=== PATIENT | female | born 1995 | race Caucasian/White ===

== ENCOUNTER 2023-07-13 11:02 | Outpatient (CLI) | payer BC, SELFPAY ==
--- NOTE | 2023-07-13 11:15 | CRLHL7_ITS ---
For Patients: As a result of the Cures Act, medical imaging exams and procedure reports are released immediately into your electronic medical record. You may view this report before your referring provider. If you have questions, please contact your health care provider. RIGHT BREAST ULTRASOUND 07/13/2023 CLINICAL HISTORY: KNOWN FIBROADENOMA OF RIGHT BREAST- FOLLOW UP COMPARISON: 04/05/2021. TECHNIQUE: Real-time ultrasound imaging of RIGHT breast with imaging documentation. FINDINGS: Targeted ultrasound RIGHT breast 6 o`clock 4 cm from the nipple performed. In this location there is a solid circumscribed hypoechoic nodule without abnormal vascularity measuring 1.2 x 0.5 x 1.2 cm, previously measuring 2.1 x 1.1 x 2.1 cm. IMPRESSION: Decreased size of fibroadenoma within the RIGHT breast. RECOMMENDATIONS: Clinical follow-up. Age-appropriate screening mammography. BI-RADS Category 2: Benign Dictated by Barrington Garcia MD @ 07/13/2023 1:09:55 PM DEVANG/william DW/Dictated by: Barrington Garcia MD @ 07/13/2023 1:09:00 PM (Electronically Signed)
== END 2023-07-13 11:03 | disposition home or self-care (01) ==
LOC: US 11:02
PROVIDERS: Visit Provider Registered Nurse
DX: D24.1 Benign neoplasm of right breast (principal)
CPT/HCPCS: 76642

== ENCOUNTER 2024-06-18 10:57 | Outpatient (CLI) | payer BC, SELFPAY ==
--- OUTSIDE RECORDS SUMMARY | 2024-06-18 10:59 | XMS_ITS | Clinical Summary ---
Author Organization [facility] Address [address] [place] [id number] Care Team Providers Care Roof Truss Machine Tender Name Role Phone Geovany Denney MD Primary Care Provider [phone] Allergies No known active allergies Medications No known medications Active Problems No known active problems Encounters Date Type Department Care Team Description 04/21/2024 12:11 AM CDT - 04/21/2024 1:[address] [facility] Emergency Dept [address] [place] [address] Tim Ward MD Chest pain, unspecified type Discharge Disposition: Home or Self Care 04/21/2024 Travel from Last 3 Months Family History Medical History Relation Comments Diabetes Maternal Grandmother Breast Cancer Maternal Great-Grandmother Diabetes Mother Coronary Artery Disease Other Breast Cancer Paternal Grandmother Cerebrovascular Disease No family hx of Colon Cancer No family hx of Hyperlipidemia No family hx of Hypertension No family hx of Relation Status Comments Brother Alive Father Alive Maternal Grandmother Maternal Great-Grandmother Mother Alive Other Alive Paternal Grandmother Sister Alive Social History Tobacco Use Types Packs/Day Years Used Date Smoking Tobacco: Never Smokeless Tobacco: Never Adolescent Education Answer Date Record ed Getting School Help Needed Not on file 04/21 Sex and Gender Information Value Date Recorded Sex Assigned at Not on file Gender Identity Not on file Sexual Orientation Not on file Last Filed Vital Signs Vital Sign Reading Time Taken Comments Blood Pressure 111/78 04/21/2024 12:05 AM CDT Pulse 71 04/21/2024 12:05 AM CDT Temperature 36.5 ??C (97.7 ??F) 04/21/2024 12:05 AM C DT Respiratory Rate 20 04/21/2024 12:05 AM CDT Oxygen Saturation 99% 04/21/2024 12:05 AM CDT Inhaled Oxygen Concentration - - Weight 54.4 kg (120 lb) 04/21/2024 12:05 AM CDT Height 165.1 cm (5' 5) 07/27/2020 1:41 PM CDT Body Mass Index 19.97 07/27/2020 1:41 PM CDT Plan of Treatment Health Maintenance Due Date Last Done Comments ADVANCE CARE PLANNING 1995 ANNUAL REVIEW OF HM ORDERS 1995 HPV IMMUNIZATION (2 - 2-dose series) 10/18/2008 04/17/2008 HIV SCREENING 2010 YEARLY PREVENTIVE VISIT 05/04/2012 05/04/20 11, 04/12/2010, 04/17/2008 HEPATITIS C SCREENING 2013 PHQ-2 (once per calendar year) 2023 PAP 02/25/2024 02/24/2021 COVID-19 Vaccine ( season) 2024 INFLUENZA VACCINE (#1) 2024 08/11/2014, 2008 DTAP/TDAP/TD IMMUNIZATION (8 - Td or Tdap) 09/22/2031 09/22/2021, 05/04/2011, 02/11/2001, Additional history exists HEPATITIS B IMMUNIZATION Completed 996, 01/25/1996, 1995 MENINGITIS IMMUNIZATION Aged Out 05/04/2011, 05/01 No longer eligible based on patient's age to complete this topic Pneumococcal Vaccine: Pediatrics (0 to 5 Years) and At-Risk Patients (6 to 64 Years) Aged Out No longer eligible based on patient's age to complete this topic RSV MONOCLONAL ANTIBODY Aged Out No l onger eligible based on patient's age to complete this topic Procedures Procedure Name Priority Date/Time Associated Diagnosis Comments XR CHEST 2 VIEWS STAT 04/21/2024 1:32 AM CDT CBC WITH PLATELETS & DIFFERENTIAL STAT 04/21/2024 12:29 AM CDT CBC WITH PLATELETS AND DIFFERENTIAL STAT 04/21/2024 12:29 AM CDT D DIMER QUANTITATIVE STAT 04/21/2024 12:29 AM CDT ERYTHROCYTE SEDIMENTATION RATE AUTO STAT 04/21/2024 12:29 AM CDT CRP INFLAMMATION STAT 04/21/2024 12:2 9 AM CDT TROPONIN T, HIGH SENSITIVITY STAT 04/21/2024 12:29 AM CDT BASIC METABOLIC PANEL STAT 04/21/2024 12:29 AM CDT EKG 12-LEAD, TRACING ONLY STAT 04/21/2024 12:11 AM CDT INFLUENZA A/B, RSV, & SARS-COV2 PCR STAT 04/21/2024 12:10 AM CDT from Last 3 Months Results * XR Chest 2 Views (04/21/2024 1:32 AM CDT) Anatomical Region Laterality Modality Chest Computed Radiogr aphy 04/21/2024 1:32 AM CDT Impressions 04/21/2024 1:36 AM CDT IMPRESSION: Negative chest, unchanged. Narrative 04/21/2024 1:36 AM CDT EXAM: XR CHEST 2 VIEWS LOCATION: [facility] DATE: 04/21/2024 INDICATION: Chest pain. COMPARISON: Chest PA view with 2 views right ribs 07/27/2020. Procedure Note Claudia Santoro MD - 04/21/2024 EXAM: XR CHEST 2 VIEWS LOCATION: [facility] DATE: 04/21/2024 INDICATION: Chest pain. COMPARISON: Chest PA view with 2 views right ribs 07/27/2020. IMPRESSION: Negative chest, unchanged. Tim Ward MD IMG DIAGN OSTIC IMAGING ORDERABLES * CBC with platelets and differential (04/21/2024 12:29 AM CDT) WBC Count 6.4 4.0 - 11.0 10e3/uL 04/21/2024 12:40 AM CDT [facility] RBC Count 4.40 3.80 - 5.20 10e6/uL 04/21/2024 12:40 AM CDT [facility] Hemoglobin 13.3 11.7 - 15.7 g/dL 04/21/2024 12:40 AM CDT [facility] Hematocrit 40.9 35.0 - 47.0 % 04/21/2024 12:40 AM CDT [facility] MCV 93 78 - 100 fL 04/21/2024 12:40 AM CDT [facility] MCH 30.2 26.5 - 33.0 pg 04/21/2024 12:40 AM CDT [facility] MCHC 32.5 31.5 - 36.5 g/dL 04/21/2024 12:40 AM CDT [facility] RDW 12.6 10.0 - 15.0 % 04/21/2024 12:40 AM CDT [facility] Platelet Count 241 150 - 450 10e3/uL 04/21/2024 12:40 AM CDT [facility] % Neutrophils 44 % 04/21/2024 12:40 AM CDT [facility] % Lymphocytes 42 % 04/21/2024 12:40 AM CDT [facility] % Monocytes 9 % 04/21/2024 12:40 AM CDT [facility] % Eosinophils 4 % 04/21/2024 12:40 AM CDT [facility] % Basophils 1 % 04/21/2024 12:40 AM CDT [facility] % Immature Granulocytes 0 % 04/21/2024 12:40 AM CDT [facility] NRBCs per 100 WBC 0 <1 /100 024 12:40 AM CDT [facility] Absolute Neutrophils 2.8 1.6 - 8.3 10e3/uL 04/21/2024 12:40 AM CDT [facility] Absolute Lymphocytes 2.7 0.8 - 5.3 10e3/uL 04/21/2024 12:40 AM CDT [facility] Absolute Monocytes 0.5 0.0 - 1.3 10e3/uL 04/21/2024 12:40 AM CDT [facility] Absolute Eosinophils 0.3 0.0 - 0.7 10e3/uL 04/21/2024 12:40 AM CDT [facility] Absolute Basophils 0.1 0.0 - 0.2 10e3/uL 04/21/2024 12:40 AM CDT [facility] Absolute Immature Granulocytes 0.0 <=0.4 10e3/uL 04/21/2024 12:40 AM CDT [facility] Absolute NRBCs 0.0 10e3/uL 04/21/2024 12:40 AM CDT [facility] Blood BLOOD SPECIMEN / Unknown Venipuncture / Unknown 04/21/2024 12:29 AM CDT 04/21/2024 12:36 AM CDT Tim Ward MD LAB - BLO OD ORDERABLES [facility] [address] Lab (1st floor, no room number) [place] [address] * Troponin T, High Sensitivity (04/21/2024 12:29 AM CDT) [facility] Troponin T, High Sensitivity <6 <=14 ng/L 04/21/2024 12:59 AM CDT [facility] Comment: Either a High Sensitivity Troponin T baseline (0 hours) value = 100 ng/L, or an increase in High Sensitivity Troponin T = 7 ng/L at 2 hours compared to 0 hours (2-0 hours), suggests myocardial injury, and urgent clinical attention is required. ?? If the 2-0 hours increase is <7 ng/L, a High Sensitivity Troponin T result above gender-specific reference ranges warrants further evaluation. Recommendations for further evaluation include correlation with clinical decision-making tool (e.g., HEART), a 3rd High Sensitivity Troponin T test 2 hours after the 2nd (a 20% change from baseline would represent concern), admission for observation, close PCC/cardiology follow-up, or urgent outpatient provocative testing. Blood BLOOD SPECIMEN / Unknown Venipuncture / Unknown 04/21/2024 12:29 AM CDT 04/21/2024 12:36 AM CDT Tim Ward MD LAB - BLO OD ORDERABLES [facility] Lab [address] Lab (1st floor, no room number) [place] [phone] [place] [address] * Erythrocyte sedimentation rate auto (04/21/2024 12:29 AM CDT) [facility] Erythrocyte Sedimentation Rate 8 0 - 20 mm/hr 04/21/2024 12:50 AM CDT LABORATORY Blood BLOOD SPECIMEN / Unknown Venipuncture / Unknown 04/21/2024 12:29 AM CDT 04/21/2024 12:36 AM CDT Tim Ward MD LAB - BLO OD ORDERABLES [facility] Lab [address] Lab (1st floor, no room number) [place] [phone] [place] [address] * D dimer quantitative (04/21/2024 12:29 AM CDT) [facility] D-Dimer Quantitative <0.27 0.00 - 0.50 ug/mL FEU 04/21/2024 12:56 AM CDT LABORATORY Blood BLOOD SPECIMEN / Unknown Venipuncture / Unknown 04/21/2024 12:29 AM CDT 04/21/2024 12:36 AM CDT Narrative LABORATORY - 04/21/2024 12:56 AM CDT This D-dimer assay is intended for use in conjunction with a clinical pretest probability assessment model to exclude pulmonary embolism (PE) and deep venous thrombosis (DVT) in outpatients suspected of PE or DVT. The cut-off value is 0.50 ug/mL FEU. Tim Ward MD LAB - BLO OD ORDERABLES [facility] [address] [facility], no room number) [place] [phone] [place] [address] * CRP inflammation (04/21/2024 12:29 AM CDT) [facility] CRP Inflammation <3.00 <5.00 mg/L 04/21/20 12:59 AM CDT LABORATORY Blood BLOOD SPECIMEN / Unknown Venipuncture / Unknown 04/21/2024 12:29 AM CDT 04/21/2024 12:36 AM CDT Tim Ward MD LAB - BLO OD ORDERABLES LABORATORY [facility] Lab [address] Lab (1st floor, no room number) [place] [address] * (ABNORMAL) Basic metabolic panel (04/21/2024 12:29 AM CDT) Sodium 138 135 - 145 mmol/L 04/21/2024 12:59 AM CDT LABORATORY Potassium 4.1 3.4 - 5.3 mmol/L 04/21/2024 12:59 AM CDT LABORATORY Chloride 102 98 - 107 mmol/L 04/21/2024 12:59 AM CDT LABORATORY Carbon Dioxide (CO2) 27 22 - 29 mmol/L 04/21/2024 12:59 AM CDT LABORATORY Anion Gap 9 7 - 15 mmol/L 04/21/2024 12:59 AM CDT LABORATORY Urea Nitrogen 20.4(H) 6.0 - 20.0 mg/dL 04/21/2024 12:59 AM CDT LABORATORY Creatinine 0.75 0.51 - 0.95 mg/dL 04/21/2024 12:59 AM CDT LABORATORY GFR Estimate >90 >60 mL/min/1.7 3m2 04/21/2024 12:59 AM CDT LABORATORY Comment:eGFR calculated usin 2020 CKD-EPI equation. Calcium 9.3 8.8 - 10.4 mg/dL 04/21/2024 12:59 AM CDT LABORATORY Comment:Reference intervals for this test were updated on 04/15/2024 to reflect our healthy population more accurately. There may be differences in the flagging of prior results with similar values performed with this method. Those prior results can be interpreted in the context of the updated reference intervals. Glucose 98 70 - 99 mg/dL 04/21/2024 12:59 AM CDT LABORATORY Blood BLOOD SPECIMEN / Unknown Venipuncture / Unknown 04/21/2024 12:29 AM CDT 04/21/2024 12:36 AM CDT Tim Ward MD LAB - BLO OD ORDERABLES [facility] [address] Lab (1st floor, no room number) [place] [address] * EKG 12 lead (04/21/2024 12:11 AM CDT) Systolic Blood Pressure mmHg RADIOLOGY RESULTS Diastolic Blood Pressure mmHg RADIOLOGY RESULTS Ventricular Rate 42 BPM RAD IOLOGY RESULTS Atrial Rate 42 BPM RADIOLOG Y RESULTS NV Interval 146 ms RADIOLOG Y RESULTS QRS Duration 70 ms RADIOLO GY RESULTS QT 450 ms RADIOLOGY RESULTS QTc 375 ms RADIOLOGY RESULTS P [place] 68 degrees RADIOLOGY RESULTS R AXIS 47 degrees RADIOLOGY RESULTS T [place] 68 degrees RADIOLOGY RESULTS Interpretation ECG Sinus bradycardia Nonspecific T wave abnormality Abnormal ECG No previous ECGs available Confirmed by - EMERGENCY ROOM, PHYSICIAN ([id number]), slot editor ZAFAR GARCIA ([id number]) on 04/21/2024 6:51:06 AM RADIOLOGY RESULTS 04/21/2024 12:1 1 AM CDT 04/21/2024 6:51 AM CDT Tim Ward MD ECG ORDER WILLIE RADIOLOGY RESULTS * Symptomatic Influenza A/B, RSV, & SARS-CoV2 PCR (COVID-19) Nasopharyngeal (04/21/2024 12:10 AM CDT) Influenza A PCR Negative Negative 04/21/2024 12:50 AM CDT LABORATORY Influenza B PCR Negative Negative 04/21/2024 12:50 AM CDT LABORATORY RSV PCR Negative Negative 04/21/2024 12:50 AM CDT LABORATORY SARS CoV2 PCR Negative Negative 04/21/2024 12:50 AM CDT LABORATORY Comment:NEGATIVE: SARS-CoV-2 (COVID-19) RNA not detected, presumed negative. Swab NASOPHARYNGEAL STRUCTURE / Unknown Non-blood Collection / Unknown 04/21/2024 12:10 AM CDT 04/21/2024 12:13 AM CDT [facility] LABORATORY - 04/21/2024 12:50 AM CDT Testing was performed using the Xpert Xpress CoV2/Flu/RSV Assay on the Packet[employer] GeneXpert Instrument. This test should be ordered for the detection of SARS-CoV-2, influenza, and RSV viruses in individuals who meet clinical and/or epidemiological criteria. Test performance is unknown in asymptomatic patients. This test is for in vitro diagnostic use under the FDA EUA for laboratories certified under CLIA to perform high or moderate complexity testing. This test has not been FDA cleared or approved. A negative result does not rule out the presence of PCR inhibitors in the specimen or target RNA in concentration below the limit of detection for the assay. If only one viral target is positive but coinfection with multiple targets is suspected, the sample should be re-tested with another FDA cleared, approved, or authorized test, if coinfection would change clinical management. This test was validated by the [facility]. These laboratories are certified under the Clinical Laboratory Improvement Amendments of 1988 (CLIA-88) as qualified to perform high complexity laboratory testing. Tim Ward MD LAB - PETROS RO GENERAL ORDERABLES [facility] Lab [address] [facility] Lab (1st floor, no room number) [place] [address], [facility] from Last 3 Months Care Teams Roof Truss Machine Tender Relationship Specialty [place] [address] [place] [id number] PCP - General Family Medicine 07/29/20
--- OUTSIDE RECORDS SUMMARY | 2024-06-18 11:00 | XMS_ITS | Encounter Summary ---
Author Organization [facility] Address [address] [place] [address]. [place] [address] Care Team Providers Care Certified Physical Therapist Assistant Name Role Phone Geovany Denney MD Primary Care Provider [phone] Encounter Details Date Type Department Care Team (Latest Contact Info) Description 04/21/2024 Travel Social History Tobacco Use Types Packs/Day Years Used Date Smoking Tobacco: Never Smokeless Tobacco: Never Adolescent Education Answer Date Record ed Getting School Help Needed Not on file 04/21 Sex and Gender Information Value Date Recorded Sex Assigned at Not on file Gender Identity Not on file Sexual Orientation Not on file documented as of this encounter Plan of Treatment Not on file documented as of this encounter Visit Diagnoses Not on filedocumented in this encounter Additional Health Concerns Infection Onset Date Last Indicated Resolved Time Rule Out COVID-19 04/21/2024 04/21/2024 04/21/2024 12:50 AM CDT documented as of this encounter Care Teams Certified Physical Therapist Assistant Relationship Specialty Start Date End Date Geovany Denney MD [address] [place] [id number] PCP - General Family Medicine 07/29/20 documented as of this encounter
--- OUTSIDE RECORDS SUMMARY | 2024-06-18 11:00 | XMS_ITS | Encounter Summary ---
Author Organization [facility] Address [address] [place] [address]. [place] [address] Care Team Providers Care Electronic Equipment Repairer Name Role Phone Geovany Denney MD Primary Care Provider [phone] Reason for Visit * Reason Comments Chest Pain For the last 24 hour s, also COVID symptoms over the last week. Encounter Details Date Type Department Care Team (Late st Contact Info) Description 04/21/2024 12:11 AM CDT - 04/21/2024 1:49 AM CDT Emergency [facility] Emergency Dept [address] [place] [address] Tim Ward MD [facility] [address] [place] [phone] Chest pain, unspecified type Discharge Disposition: Home or Self Care Social History Tobacco Use Types Packs/Day Years Used Date Smoking Tobacco: Never Smokeless Tobacco: Never Adolescent Education Answer Date Record ed Getting School Help Needed Not on file 04/21 Sex and Gender Information Value Date Recorded Sex Assigned at Not on file Gender Identity Not on file Sexual Orientation Not on file documented as of this encounter Last Filed Vital Signs Vital Sign Reading Time Taken Comments Blood Pressure 111/78 04/21/2024 12:05 AM CDT Pulse 71 04/21/2024 12:05 AM CDT Temperature 36.5 ??C (97.7 ??F) 04/21/2024 12:05 AM C DT Respiratory Rate 20 04/21/2024 12:05 AM CDT Oxygen Saturation 99% 04/21/2024 12:05 AM CDT Inhaled Oxygen Concentration - - Weight 54.4 kg (120 lb) 04/21/2024 12:05 AM CDT Height - - Body Mass Index 19.97 07/27/2020 1:41 PM CDT documented in this encounter Discharge Instructions * Attachments The following attachments cannot be sent through Care Everywhere. * Chest Pain (Macanese) documented in this encounter ED Notes * Mera Gonzalez RN - 04/21/2024 12:07 AM CDT Patient comes to ED for evaluation of chest pain for the last 24 hours. Patient has had COVID symptoms all week but did not test at home. Alert and oriented x 4 in triage. Triage Assessment (Adult) Row Name 04/21/24 0007 Triage Assessment Airway WDL WDL Respiratory WDL Respiratory WDL WDL Skin Circulation/Temperature WDL Skin Circulation/Temperature WDL WDL Cardiac WDL Cardiac WDL WDL Peripheral/Neurovascular WDL Peripheral Neurovascular WDL WDL Cognitive/Neuro/Behavioral WDL Cognitive/Neuro/Behavioral WDL WDL * Tim Ward MD - 04/20/2024 11:59 PM CDT Emergency Department Note History of Present Illness Chief Complaint Chest Pain (For the last 24 hours, also COVID symptoms over the last week.) JUDY Anderson is a 28 year old female with a history of anxiety who presents to the emergency department for chest pain. The patient states that 5 days ago, she began experiencing cough, fatigue, and loss of gustation and olfaction. She reports that these symptoms resolved two days ago but yesterday, she began experiencing an onset of mid sternal chest pain that radiates to her left upper chest. She describes this chest pain as sharp but sometimes aching and notes that this pain is exacerbated by deep breathing and upon palpation. She has been taking Tylenol and ibuprofen with her last dose of Tylenol at 1800. She notes that she has also been experiencing left arm numbness and pain as well as left leg swelling and an aching pain. Denies any hx of smoking, hormone replacement therapies, or taking control. Denies hx of DVT/PE or any familial hx of DVT/PE. Denies any recent travel. Denies concern for . She notes that she lives an active lifestyle. She adds that she has a hx of anxiety. Independent Historian None Past Medical History Medical History and Problem List Anxiety ADHD Medications Adderall Lexapro Physical Exam Patient Vitals for the past 24 hrs: BP Temp Temp src Pulse Resp SpO2 Weight 04/21/24 0005 111/78 97.7 ??F (36.5 ??C) Oral 71 20 99 % 54.4 kg (120 lb) Physical Exam General: Patient is awake, alert and interactive Head: The scalp, face, and head appear normal Eyes: The pupils are equal, round, and reactive to light. Conjunctivae and sclerae are normal Neck: Normal range of motion. CV: Regular rate and rhythm. Peripheral pulses including radial pulses are symmetric. Resp: Lungs are clear without wheezes or rales. No respiratory distress. GI: Abdomen is soft, no rigidity, guarding, or rebound. No distension. No tenderness to palpation in any quadrant. MS: Chest wall is tender to palpation. No asymmetric leg swelling, calf or thigh tenderness. Skin: No rash or lesions noted. Normal capillary refill noted Neuro: Speech is normal and fluent. Face is symmetric. Moving all extremities. Psych: Normal affect. Appropriate interactions. Diagnostics Lab Results Labs Ordered and Resulted from Time of ED Arrival to Time of ED Departure BASIC METABOLIC PANEL - Abnormal Result Value Sodium 138 Potassium 4.1 Chloride 102 Carbon Dioxide (CO2) 27 Anion Gap 9 Urea Nitrogen 20.4 (*) Creatinine 0.75 GFR Estimate >90 Calcium 9.3 Glucose 98 INFLUENZA A/B, RSV, & SARS-COV2 PCR - Normal Influenza A PCR Negative Influenza B PCR Negative RSV PCR Negative SARS CoV2 PCR Negative TROPONIN T, HIGH SENSITIVITY - Normal Troponin T, High Sensitivity <6 CRP INFLAMMATION - Normal CRP Inflammation <3.00 ERYTHROCYTE SEDIMENTATION RATE AUTO - Normal Erythrocyte Sedimentation Rate 8 D DIMER QUANTITATIVE - Normal D-Dimer Quantitative <0.27 CBC WITH PLATELETS AND DIFFERENTIAL WBC Count 6.4 RBC Count 4.40 Hemoglobin 13.3 Hematocrit 40.9 MCV 93 MCH 30.2 MCHC 32.5 RDW 12.6 Platelet Count 241 % Neutrophils 44 % Lymphocytes 42 % Monocytes 9 % Eosinophils 4 % Basophils 1 % Immature Granulocytes 0 NRBCs per 100 WBC 0 Absolute Neutrophils 2.8 Absolute Lymphocytes 2.7 Absolute Monocytes 0.5 Absolute Eosinophils 0.3 Absolute Basophils 0.1 Absolute Immature Granulocytes 0.0 Absolute NRBCs 0.0 Imaging XR Chest 2 Views Final Result IMPRESSION: Negative chest, unchanged. EKG ECG results from 04/21/24 EKG 12 lead Value Systolic Blood Pressure Diastolic Blood Pressure Ventricular Rate 42 Atrial Rate 42 CA Interval 146 QRS Duration 70 QT 450 QTc 375 P [place] 68 R AXIS 47 T [place] 68 Interpretation ECG Sinus bradycardia Nonspecific T wave abnormality Abnormal ECG No previous ECGs available Independent Interpretation CXR: No pneumothorax or infiltrate. ED Course Medications Administered Medications ketorolac (TORADOL) injection 15 mg (has no administration in time range) Discussion of Management None ED Course ED Course as of 04/21/24 0144 SunApr 21, 2024 0022 I obtained history and examined the patient as noted above. 0141 I discussed findings and discharge with the patient. All questions answered. Optional/Additional Documentation None Medical Decision Making / Diagnosis CMS Diagnoses: None MIPS None MDM Tammy Anderson is a very pleasant 28 year old year old female who presents to the emergency department with concern of chest pain of unclear etiology. She recently suffered from a upper respiratory illness is now is having some sharp and pleuritic chest pain. Her pain is not positional but is reproducible with palpation. At this time I do not suspect that there is an acute/dangerous pathology for the chest pain. They have no significant personal/family history of cardiac disease. They have no significant cardiac risk factors. The EKG was reviewed and shows no significant ST changes and no evidence of Brugada syndrome, Wycn-[id number], hypertrophic cardiomyopathy or prolonged QTc syndrome. The chest xray was reviewed and shows no evidence of pneumothorax, infiltrate to suggest pneumonia, widened mediastinum to suggest aortic dissection, obvious rib fracture or free air under the diaphragm to suggest perforated viscous ulcer. Their troponin was negative. The patient does not smokeand is otherwise PERC negative. The patient has not had recent fevers or viral infections to suggest pericarditis. They have not had recent chest trauma. All of this was discussed with the patient and they were reassurred. I have advised them to follow-up with their PCP in the next 3 days to get further evaluation, and to return to the ED sooner if their chest pain continues/worsens, they developsevere SOB/fevers/lightheadedness, or they develop any other new and concerning symptoms. At this point the patient is stable and appropriate for discharge. Disposition The patient was discharged. Diagnosis ICD-10-CM 1. Chest pain, unspecified type R07.9 Scribe Disclosure: Umer Jones, am serving as a scribe at 12:12 AM on 04/21/2024 to document services personally performed by Tim Ward MD based on my observations and the provider's statements to me. Tim Ward MD 04/21/24 0626 documented in this encounter Plan of Treatment Not on file documented as of this encounter Procedures Procedure Name Priority Date/Time Associated Diagnosis Comments XR CHEST 2 VIEWS STAT 04/21/2024 1:32 AM CDT CBC WITH PLATELETS AND DIFFERENTIAL STAT 04/21/2024 12:29 AM CDT TROPONIN T, HIGH SENSITIVITY STAT 04/21/2024 12:29 AM CDT CBC WITH PLATELETS & DIFFERENTIAL STAT 04/21/2024 12:29 AM CDT ERYTHROCYTE SEDIMENTATION RATE AUTO STAT 04/21/2024 12:29 AM CDT D DIMER QUANTITATIVE STAT 04/21/2024 12:29 AM CDT CRP INFLAMMATION STAT 04/21/2024 12:2 9 AM CDT BASIC METABOLIC PANEL STAT 04/21/2024 12:29 AM CDT EKG 12-LEAD, TRACING ONLY STAT 04/21/2024 12:11 AM CDT INFLUENZA A/B, RSV, & SARS-COV2 PCR STAT 04/21/2024 12:10 AM CDT documented in this encounter Results * XR Chest 2 Views (04/21/2024 1:32 AM CDT) Anatomical Region Laterality Modality Chest Computed Radiogr aphy 04/21/2024 1:32 AM CDT Impressions 04/21/2024 1:36 AM CDT IMPRESSION: Negative chest, unchanged. Narrative 04/21/2024 1:36 AM CDT EXAM: XR CHEST 2 VIEWS LOCATION: [facility] DATE: 04/21/2024 INDICATION: Chest pain. COMPARISON: Chest PA view with 2 views right ribs 07/27/2020. Procedure Note Claudia Santoro MD - 04/21/2024 EXAM: XR CHEST 2 VIEWS LOCATION: [facility] DATE: 04/21/2024 INDICATION: Chest pain. COMPARISON: [...] LAB - BLO OD ORDERABLES [facility] Acute Care Lab [address] Lab (1st floor, no room number) [place] [address], [facility] * D dimer quantitative (04/21/2024 12:29 AM CDT) D-Dimer Quantitative <0.27 0.00 - 0.50 ug/mL FEU 04/21/2024 12:56 AM CDT [facility] Blood BLOOD SPECIMEN / Unknown Venipuncture / Unknown 04/21/2024 12:29 AM CDT 04/21/2024 12:36 AM CDT Narrative [facility] - 04/21/2024 12:56 AM CDT This D-dimer assay is intended for use in conjunction with a clinical pretest probability assessment model to exclude pulmonary embolism (PE) and deep venous thrombosis (DVT) in outpatients suspected of PE or DVT. The cut-off value is 0.50 ug/mL FEU. Tim Ward MD LAB - BLO OD ORDERABLES [facility] Care Lab [address] Lab (1st floor, no room number) [address] * Erythrocyte sedimentation rate auto (04/21/2024 12:29 AM CDT) Erythrocyte Sedimentation Rate 8 0 - 20 mm/hr 04/21/2024 12:50 AM CDT [facility] Blood BLOOD SPECIMEN / Unknown Venipuncture / Unknown 04/21/2024 12:29 AM CDT 04/21/2024 12:36 AM CDT Tim Ward MD LAB - BLO OD ORDERABLES Performing Organization Address City/[facility]/ZIP Co de Phone Number [facility] Lab [address] Lab (1st floor, no room number) [address] * CRP inflammation (04/21/2024 12:29 AM CDT) CRP Inflammation <3.00 <5.00 mg/L 04/21/20 12:59 AM CDT LABORATORY Blood BLOOD SPECIMEN / Unknown Venipuncture / Unknown 04/21/2024 12:29 AM CDT 04/21/2024 12:36 AM CDT Tim Ward MD LAB - BLO OD ORDERABLES LABORATORY [facility] Acute Care Lab [address] Lab (1st floor, no room number) [place] [address] * Troponin T, High Sensitivity (04/21/2024 12:29 AM CDT) Troponin T, High Sensitivity <6 <=14 ng/L [...] MD LAB - BLO OD ORDERABLES LABORATORY [facility] Acute Care Lab [address] Lab (1st floor, no room number) [place] [address] * (ABNORMAL) Basic metabolic panel (04/21/2024 12:29 AM CDT) Sodium 138 135 - 145 mmol/L 04/21/2024 12:59 AM CDT LABORATORY Potassium 4.1 3.4 - 5.3 mmol/L 04/21/2024 12:59 AM CDT LABORATORY Chloride 102 98 - 107 mmol/L 04/21/2024 12:59 AM CDT LABORATORY Carbon Dioxide (CO2) 27 22 - 29 mmol/L 04/21/2024 12:59 AM CDT [facility] Anion Gap 9 7 - 15 mmol/L 04/21/2024 12:59 AM CDT [facility] Urea Nitrogen 20.4(H) 6.0 - 20.0 mg/dL 04/21/2024 12:59 AM CDT [facility] Creatinine 0.75 0.51 - 0.95 mg/dL 04/21/2024 12:59 AM CDT [facility] GFR Estimate >90 >60 mL/min/1.7 3m2 04/21/2024 12:59 AM CDT [facility] Comment:eGFR calculated usin 2020 CKD-EPI equation. Calcium 9.3 8.8 - 10.4 mg/dL 04/21/2024 12:59 AM CDT [facility] Comment:Reference intervals for this test were [...] MD LAB - BLO OD ORDERABLES LABORATORY [facility] Acute Care Lab [address] [facility] Lab (1st floor, no room number) [place] [address] * EKG 12 lead (04/21/2024 12:11 AM CDT) Systolic Blood Pressure mmHg RADIOLOGY RESULTS Diastolic Blood Pressure mmHg RADIOLOGY RESULTS Ventricular Rate 42 BPM RAD IOLOGY RESULTS Atrial Rate 42 BPM RADIOLOG Y RESULTS CA Interval 146 ms RADIOLOG Y RESULTS QRS Duration 70 ms RADIOLO GY RESULTS QT 450 ms RADIOLOGY RESULTS QTc 375 ms RADIOLOGY RESULTS P [place] 68 degrees RADIOLOGY RESULTS R AXIS 47 degrees RADIOLOGY RESULTS T [place] 68 degrees RADIOLOGY RESULTS Interpretation ECG Sinus bradycardia Nonspecific T wave abnormality Abnormal ECG No previous ECGs available Confirmed by - EMERGENCY ROOM, PHYSICIAN ([id number]), news copy editor ZAFAR GARCIA (Mike) on 04/21/2024 6:51:06 AM RADIOLOGY RESULTS 04/21/2024 12:1 1 AM CDT 04/21/2024 6:51 AM CDT Tim Ward MD ECG ORDER WILLIE RADIOLOGY RESULTS * Symptomatic Influenza A/B, RSV, & SARS-CoV2 PCR (COVID-19) Nasopharyngeal (04/21/2024 12:10 AM CDT) Influenza A PCR Negative Negative 04/21/2024 12:50 AM CDT [facility] Influenza B PCR Negative Negative 04/21/2024 12:50 AM CDT [facility] RSV PCR Negative Negative 04/21/2024 12:50 AM CDT [facility] SARS CoV2 PCR Negative Negative 04/21/2024 12:50 AM CDT [facility] Comment:NEGATIVE: SARS-CoV-2 (COVID-19) RNA not detected, presumed negative. Swab NASOPHARYNGEAL STRUCTURE / Unknown Non-blood Collection / Unknown 04/21/2024 12:10 AM CDT 04/21/2024 12:13 AM CDT Narrative [facility] - 04/21/2024 12:50 AM CDT Testing was performed using the Xpert Xpress CoV2/Flu/RSV Assay on the [employer] GeneXpert Instrument. This test should be ordered [...] management. This test was validated by the [facility]. These laboratories are certified under the Clinical Laboratory Improvement Amendments of 1988 (CLIA-88) as qualified to perform high complexity laboratory testing. Tim Ward MD LAB - PETROS RO GENERAL ORDERABLES [facility] Acute Care Lab [address] Lab (1st floor, no room number) [place] [address], [facility] documented in this encounter Visit Diagnoses Diagnosis Chest pain, unspecified type documented in this encounter Administered Medications Inactive Administered Medications - up to 3 most recent administrations Medication Order MAR Action Action Date Dose Rate Site ketorolac (TORADOL) injection 15 mg 15 mg, Intravenous, ONCE, On Sun04/21/24 at 0140, For 1 dose, Do not give within 6 hours of Ibuprofen. Can cause pain on injection. If ordered intravenously (IV) : administer through a running maintenance fluid over 1 minute followed by a flush. If patient complains of pain on injection, may dilute 15-30 mg in 5 mL and push over 1 to 2 minutes. $Given 04/21/2024 1:45 AM CDT 15 mg documented in this encounter Active and Recently Administered Medications Times are shown in CDT. Scheduled Medication Order 04/19/2024 04/20/2024 04/21/2024 ketorolac (TORADOL) injection 15 mg (COMPLETED) 15 mg, Intravenous, ONCE, On Sun04/21/24 at 0140, For 1 dose, Do not give within 6 hours of Ibuprofen. Can cause pain on injection. If ordered intravenously (IV) : administer through a running maintenance fluid over 1 minute followed by a flush. If patient complains of pain on injection, may dilute 15-30 mg in 5 mL and push over 1 to 2 minutes. 0145 ($Given - Provi zheng: Nell Art RN) documented in this encounter Additional Health Concerns Infection Onset Date Last Indicated Resolved Time Rule Out COVID-19 04/21/2024 04/21/2024 04/21/2024 12:50 AM CDT documented as of this encounter Care Teams Electronic Equipment Repairer Relationship Specialty Start Date End Date Geovany Denney MD [address] [place] [phone] PCP - General Family Medicine 07/29/20 documented as of this encounter
--- OUTSIDE RECORDS SUMMARY | 2024-06-18 11:00 | XMS_ITS | Clinical Summary ---
Author Organization [employer] [facility] Address [place], [place] [address] Care Team Providers Care Link Trainer Maintenance Man Name Role Phone Truong Joy Scott DEANDRE Primary Care Provider [phone] Allergies No known active allergies Medications Medication Sig Dispensed Refills Start Date End Date Status dextroamphetamine-amp hetamine (AdderalL) 20 mg tabletIndications:ADH D (attention deficit hyperactivity disorder), combined type Take 1 Tablet (20 mg) by mouth two times daily. 60 Tablet 07/16/2023 Active dextroamphetamine-amp hetamine (AdderalL) 20 mg tabletIndications:ADH D (attention deficit hyperactivity disorder), combined type Take 1 Tablet (20 mg) by mouth two times daily. 60 Tablet 08/15/2023 Active dextroamphetamine-amp hetamine (AdderalL) 20 mg tabletIndications:ADH D (attention deficit hyperactivity disorder), combined type Take 1 Tablet (20 mg) by mouth two times daily. 60 Tablet 10/29/2023 Active dextroamphetamine-amp hetamine (AdderalL) 20 mg tabletIndications:ADH D (attention deficit hyperactivity disorder), combined type Take 1 Tablet (20 mg) by mouth two times daily. 60 Tablet 11/28/2023 Active dextroamphetamine-amp hetamine (AdderalL) 20 mg tabletIndications:ADH D (attention deficit hyperactivity disorder), combined type Take 1 Tablet (20 mg) by mouth two times daily. 60 Tablet 02/17/2024 Active dextroamphetamine-amp hetamine (AdderalL) 20 mg tabletIndications:ADH D (attention deficit hyperactivity disorder), combined type Take 1 Tablet (20 mg) by mouth two times daily. 60 Tablet 05/30/2024 Active escitalopram oxalate (LEXAPRO) 10 mg tabletIndications:Anx iety TAKE 1 TABLET (10 MG) BY MOUTH DAILY IN THE MORNING 90 Tablet 1 04/18/2024 Active dextroamphetamine-amp hetamine (AdderalL) 20 mg tabletIndications:ADH D (attention deficit hyperactivity disorder), combined type Take 1 Tablet (20 mg) by mouth two times daily. 60 Tablet 04/30/2024 05/30/2024 Active Problems Problem Noted Date Diagnosed Date Anxiety 12/20/2023 ADHD (attention deficit hype ractivity disorder), combined type 03/08/2023 Encounters Date Type Department Care Team Description 05/07/2024 Orders Only [facility] [id number] [address] Griselda Hinds PA 1 scan: (1-Ord) EKG [facility] 04/20/24 04/20/2024 4:20 PM CDT Office Visit [facility] [address] [address] Griselda Hinds PA Chest Pain 04/20/2024 Travel 04/16/[address] [address] Humberto Jasso MD Refill Request (Escitalopram Oxalate) 03/31/[address] [address] Humberto Jasso MD Refill Request (Adderall) from Last 3 Months Immunizations Name Administration Dates Next Due Meningococcal Vaccine (Menactra) 05/01/2005 Td, Preservative Free (age >= 7 Years) 8 Tdap 09/22/2021 Social History Tobacco Use Types Packs/Day Years Used Date Smoking Tobacco: Never Smokeless Tobacco: Never Alcohol Use Standard Drinks/Week Comments Yes 0 (1 standard drink = 0.6 oz pur e alcohol) 2 drinks weekly on weekends PHQ-2 Answer Date Recorded PHQ-2 TOTAL SCORE 4 03/13/2024 Social Connections Answer Date Recorded Frequency of Communication with Friends and Fami ly 0 12/19/2023 Financial Resource Strain Answer Date R ecorded Difficulty of Paying Living Expenses 3 12/19/2023 Difficulty of Paying Living Expenses Not on file 12/19/2023 Food Insecurity Answer Date Recorded Worried About Running Out of Food in the Last Ye ar 1 12/19/2023 Transportation Needs Answer Date Record ed Lack of Transportation (Medical) 1 12/19/2023 Housing Stability Answer Date Recorded Unable to Pay for Housing in the Last Year 1 12/19/2023 Sex and Gender Information Value Date Recorded Sex Assigned at Not on file Gender Identity Not on file Sexual Orientation Not on file Obstetrics History Last Filed Vital Signs Vital Sign Reading Time Taken Comments Blood Pressure 109/53 04/20/2024 4:30 PM CDT MAP - 75 Pulse 50 04/20/2024 4:30 PM CDT Temperature 36.5 ??C (97.7 ??F) 04/20/2024 4:30 PM CD T Respiratory Rate 18 04/20/2024 4:30 PM CDT Oxygen Saturation 98% 04/20/2024 4:30 PM CDT Inhaled Oxygen Concentration - - Weight 57.2 kg (126 lb) 12/19/2023 2:20 PM CDT Height - - Body Mass Index - - Plan of Treatment Health Maintenance Due Date Last Done Comments HIV for age 15-65 2010 BMI (ht and wt on same day) for age 18+ 2013 Hepatitis C screening for ag e 18-79 2013 Pap test for age 21-65 02/25/2024 02/24/2021 COVID-19 vaccine series (2022-24 season) 2024 Influenza for age 9-49 06/01/2024 Depression screening for age 12+ 03/13/2025 03/13/2024, 03/01/2023, 02/07/2023 Tetanus booster 09/22/2031 09/22/2021, 07/31/1998 Tdap Completed 09/22/2021 Pneumococcal series for age 6-64 Aged Out No longer eligible b ased on patient's age to complete this topic Procedures Procedure Name Priority Date/Time Associated Diagnosis Comments EKG 12 LEAD Routine 04/20/2024 Chest pain in adult SUPERVISOR INTELLIGENCE ANALYST THIN PREP PAP SCREEN IMAGED Routine 02/24/2021 9:55 AM CDT from Last 3 Months or Most Recently Relevant to Health Maintenance Results * EKG 12 LEAD (04/20/2024) Griselda DOWELL EKG ORD * SUPERVISOR INTELLIGENCE ANALYST THIN PREP PAP SCREEN IMAGED (02/24/2021 9:55 AM CDT) Case Report Gynecologic Cytology Report ? Case: [id number] ? Authorizing Provider: ??Ifeoma Rucker MD ?? Collected: ? 02/24/2021 0955 ? Ordering Location: ? [facility] ?Received: ?02/25/2021 0844 ? First Screen: ?Phan Mcintosh ? Specimen: ?SUPERVISOR INTELLIGENCE ANALYST ThinPrep Vial Screening, Cervical/Vaginal ? 03/08/2021 12:31 PM CDT [facility] INTERPRETATION/ RESULT NEGATIVE FOR INTRAEPITHELIAL LESION OR MALIGNANCY (NIL) (none) 03/08/2021 12:31 PM CDT [facility] IMEN ADEQUACY Satisfactory for evaluation Endocervical component present 03/08/2021 12:31 PM CDT [facility] HPV REQUEST HPV if ASCUS 03/08/2021 12:31 PM CDT [facility] Date of LMP 01/18/2021 03/08/2021 12:31 PM CDT [facility] Additional Information 03/08/2021 12:31 PM CDT [facility] Comment: Interpreted at [facility] - [address] [address], [place] [address] Automated Review Successful 03/08/2021 12:31 PM CDT [facility] Comment:Specimen processed s uccessfully by automated project management specialist device, ThinPrep Imaging System, [employer] Note The pap test is a screening technique, not a diagnostic procedure. It is used primarily to screen for squamous cancers and precursor lesions. Published studies have shown that it is subject to both false negative and false positive results. The pap test should not be used as the sole means to diagnose or exclude pre-malignant and malignant lesions. 03/08/2021 12:31 PM CDT [facility] Other (Cervical/Vagina l) 02/24/2021 9:55 AM CDT 02/25/2021 8:44 AM CDT Ifeoma Rucker MD [facility]OLOG[facility] [address] [place] [address], from Last 3 Months or Most Recently Relevant to Health Maintenance Care Teams Link Trainer Maintenance Man Relationship Specialty Start Date End Date TruongDecember DEANDRE Chavez [address] [place] [address] PCP - General Physician [employer] Harvest Machine Operator 12/26/21
--- OUTSIDE RECORDS SUMMARY | 2024-06-18 11:00 | XMS_ITS | Referral Summary ---
Author Organization [facility] Address [address] [place] [id number] Care Team Providers Care Office Runner Name Role Phone Geovany Denney MD Primary Care Provider [phone] Encounters Date Type Department Care Team Description 04/21/2024 Travel 04/21/2024 12:11 AM CDT - 04/21/2024 1:49 AM CDT Emergency [facility] [address] [place] [address] Tim Ward MD Chest pain, unspecified type Discharge Disposition: Home or Self Care from Last 3 Months Allergies No known active allergies Medications No known medications Active Problems No known active problems Social History Tobacco Use Types Packs/Day Years [...] 07/27/2020 1:41 PM CDT Plan of Treatment Not on file Procedures Procedure Name Priority Date/Time Associated Diagnosis [...] CDT EXAM: XR CHEST 2 VIEWS LOCATION: [facility] DATE: 04/21/2024 INDICATION: Chest pain. COMPARISON: Chest PA view with 2 views right ribs 07/27/2020. Procedure Note Claudia Santoro MD - 04/21/2024 EXAM: XR CHEST 2 VIEWS LOCATION: [facility] DATE: 04/21/2024 INDICATION: Chest pain. COMPARISON: Chest [...] MD LAB - BLO OD ORDERABLES LABORATORY [facility] [address] [facility] Lab (1st floor, no room number) [place] [address] * Troponin T, High Sensitivity (04/21/2024 [...] - BLO OD ORDERABLES Performing Organization Address City/[facility]/ZIP Co de Phone Number [facility] [address] [facility], no room number[facility] [address] * Erythrocyte sedimentation rate auto (04/21/2024 12:29 AM CDT) Erythrocyte Sedimentation Rate 8 0 - 20 mm/hr 04/21/2024 12:50 AM CDT LABORATORY Blood BLOOD SPECIMEN / Unknown Venipuncture / Unknown 04/21/2024 12:29 AM CDT 04/21/2024 12:36 AM CDT Tim Ward MD LAB - BLO OD ORDERABLES Performing Organization Address City/[facility]/ZIP Co de Phone Number [facility] [address] [facility], no room number) [address] * D dimer quantitative (04/21/2024 12:29 AM [...] MD LAB - BLO OD ORDERABLES LABORATORY [facility] [address] Lab (1st floor, no room number) [address] * CRP inflammation (04/21/2024 12:29 AM CDT) CRP Inflammation <3.00 <5.00 mg/L 04/21/20 12:59 AM CDT [facility] LABORATORY Blood BLOOD SPECIMEN / Unknown Venipuncture / Unknown 04/21/2024 12:29 AM CDT 04/21/2024 12:36 AM CDT Tim Ward MD LAB - BLO OD ORDERABLES Performing Organization Address [facility]/ZIP Co de Phone Number LABORATORY [facility] [address] Lab (1st floor, no room number) [address] * (ABNORMAL) Basic metabolic panel (04/21/2024 12:29 [...] 12:59 AM CDT LABORATORY Comment:eGFR calculated usin g 2020 CKD-EPI equation. Calcium 9.3 8.8 - [...] - 99 mg/dL 04/21/2024 12:59 AM CDT [facility]AT[facility] Blood BLOOD SPECIMEN / Unknown Venipuncture / Unknown 04/21/2024 12:29 AM CDT 04/21/2024 12:36 AM CDT Tim Ward MD LAB - BLO OD ORDERABLES LABORATORY [facility] [address] [facility] Lab (1st floor, no room number) [place] [address] * EKG 12 lead (04/21/2024 12:11 AM CDT) Systolic Blood Pressure mmHg RADIOLOGY RESULTS Diastolic Blood Pressure mmHg RADIOLOGY RESULTS Ventricular Rate 42 BPM RAD IOLOGY RESULTS Atrial Rate 42 BPM RADIOLOG Y RESULTS ME Interval 146 ms RADIOLOG Y RESULTS QRS Duration 70 ms RADIOLO GY RESULTS QT 450 ms RADIOLOGY RESULTS QTc 375 ms RADIOLOGY RESULTS P [place] 68 degrees RADIOLOGY RESULTS R AXIS 47 degrees RADIOLOGY RESULTS T [place] 68 degrees RADIOLOGY RESULTS Interpretation ECG Sinus bradycardia Nonspecific T wave abnormality Abnormal ECG No previous ECGs available Confirmed by - EMERGENCY ROOM, PHYSICIAN ([id number]), associate editor ZAFAR GARCIA (Mike) on 04/21/2024 6:51:06 [...] the Xpert Xpress CoV2/Flu/RSV Assay on the [employer] GeneXpert Instrument. This test should be ordered [...] management. This test was validated by the [facility]. These laboratories are certified under the Clinical Laboratory Improvement Amendments of 1988 (CLIA-88) as qualified to perform high complexity laboratory testing. Tim Ward MD LAB - PETROS RO GENERAL ORDERABLES LABORATORY [facility] [address] Lab (1st floor, no room number) [place] [address], [facility] from Last 3 Months Care Teams Office Runner Relationship Specialty [place] [address] [place] [id number] PCP - General Family Medicine 07/29/20
[2024-06-20 09:39] LABS: HPV Source Cervix; HPV, High Risk by TMA Not Detected
== END 2024-06-18 10:58 | disposition home or self-care (01) ==
PROVIDERS: Visit Provider Registered Nurse
DX: Z01.419 Encounter for gynecological examination (general) (routine) without abnormal findings (principal); N92.6 Irregular menstruation, unspecified; F41.9 Anxiety disorder, unspecified; Z13.6 Encounter for screening for cardiovascular disorders; Z13.1 Encounter for screening for diabetes mellitus; Z13.9 Encounter for screening, unspecified; Z12.4 Encounter for screening for malignant neoplasm of cervix
CPT/HCPCS: 80061; 82670; 82947; 83001; 83498; 84146; 84270; 84402; 84403; 84443; 87624; 87625; 88141; 88142

== ENCOUNTER 2025-08-14 12:14 | Outpatient (CLI) | payer BC, SELFPAY | END 2025-08-14 12:15 | disposition home or self-care (01) | PROVIDERS: Visit Provider Registered Nurse | DX: N91.5 Oligomenorrhea, unspecified (principal) | CPT/HCPCS: 82670; 83001; 83498; 84146; 84270; 84402; 84403; 84443 ==